=== PATIENT | female | born 1945 | race Caucasian/White ===

== ENCOUNTER → 2016-09-11 | Outpatient (CLI) | payer MEDICARE, BC ==
[~2016-09-11] MED LIST: CPAP INH; DIOVAN320 MG PO; LIPITOR10 MG PO; PROZAC40 MG PO
[2016-09-11 15:58] LABS: HEMATOCRIT 43.7 % (33.0-46.0); HEMOGLOBIN 14.6 g/dL (10.0-15.0); MCH 31.4 pg (27.0-34.0); MCHC 33.4 gm/dL (32.0-36.5); MPV 9.7 fl (9.4-12.4); RBC 4.65 M/uL (3.50-5.50); WBC 6.3 K/uL (4.0-11.0)
== END ==
LOC: LGSMG 15:54
PROVIDERS: Internal Medicine
DX: R53.83 Other fatigue (principal)

== ENCOUNTER → 2016-10-12 | Outpatient (CLI) | payer MEDICARE, BC | END | disposition disaster alternative care site (69) | LOC: GBCOE 13:55 | DX: M81.0 Age-related osteoporosis without current pathological fracture (principal); M85.89 Other specified disorders of bone density and structure, multiple sites ==

== ENCOUNTER 2016-11-21 08:43 | Day surgery (SDC) | payer MEDICARE, BC ==
[~2016-11-21] VITALS: Ht 157.5 cm; Wt 75.2 kg
== END 2016-11-21 11:35 | disposition disaster alternative care site (69) ==
LOC: GEND 08:43 → GPOC 16:00
PROC: 0DJD8ZZ Inspection of Lower Intestinal Tract, Via Natural or Artificial Opening Endoscopic (ICD-10-PCS; principal; 2016-11-21)
DX: Z12.11 Encounter for screening for malignant neoplasm of colon (principal); K64.8 Other hemorrhoids; K57.30 Diverticulosis of large intestine without perforation or abscess without bleeding; I10 Essential (primary) hypertension; E78.00 Pure hypercholesterolemia, unspecified; F32.9 Major depressive disorder, single episode, unspecified; Z98.890 Other specified postprocedural states
CPT/HCPCS: J2001; J7030